=== PATIENT | female | born 1950 | race Caucasian/White ===

== ENCOUNTER 2018-06-04 19:28 | Inpatient (IN) | payer MEDICARE, MEDICAID ==
[~2018-06-04] VITALS: Ht 165.1 cm; Wt 48.0 kg
[2018-06-04 19:53] LABS: BASOPHILS # (AUTO) 0.02 x10^3/uL (0-0.1); BASOPHILS % (AUTO) 0 % (0-1); EOSINOPHILS # (AUTO) 0.02 x10^3/uL (0-0.4); EOSINOPHILS % (AUTO) 0 % (1-7); LYMPHOCYTES % (AUTO) 8 % (22-44); MD NO; MEAN CORPUSCULAR HEMOGLOBIN 32.3 pg (27.0-34.8); MEAN CORPUSCULAR HGB CONC 33.9 g/dL (32.4-35.8); MEAN CORPUSCULAR VOLUME 95.3 fL (80-100); MEAN PLATELET VOLUME 8.1 fL (7.4-10.4); MONOCYTES # (AUTO) 0.41 x10^3/uL (0.2-0.8); MONOCYTES % (AUTO) 3 % (2-9); NEUTROPHILS # (AUTO) 14.42 x10^3/uL (1.8-6.8); NEUTROPHILS % (AUTO) 90 % (42-75); PLATELET COUNT 301 x10^3/uL (130-400); RED BLOOD COUNT 4.44 x10^6/uL (3.82-5.3); RED CELL DISTRIBUTION WIDTH 12.9 % (9.6-15.2)
[2018-06-04] MEDS ORDERED: ONDANSETRON 2MG/ML, 2ML ONE (19:55)
[2018-06-04] MEDS ORDERED: SODIUM CHLORIDE FLUSH 10ML SYR IVF ONE (20:00)
[2018-06-04] MEDS ORDERED: ONDANSETRON 2MG/ML, 2ML IVPush ONE (20:00)
[2018-06-04 20:01] LABS: INTERNATIONAL NORMALIZED RATIO 1.03 (0.93-1.1); PROTHROMBIN TIME 10.9 Seconds (9.6-11.5)
[2018-06-04 20:02] LABS: ALBUMIN 3.9 g/dL (3.4-5.0); ANION GAP 12 mmol/L (5-15); CALCIUM 8.8 mg/dL (8.5-10.1); CHLORIDE 104 mmol/L (98-107); CREATININE 1.06 mg/dL (0.55-1.02)
[2018-06-04] MEDS ORDERED: MORPHINE SULFATE 4 MG/ML, 1ML ONE (21:16)
[2018-06-04] MEDS ORDERED: METOCLOPRAMIDE 5 MG/ML, 2ML ONE (21:28)
[2018-06-04] MEDS: MORPHINE SULFATE 4 MG/ML, 1ML IVPush PRN ×2 (21:38→21:53)
[2018-06-04] MEDS ORDERED: METOCLOPRAMIDE 5 MG/ML, 2ML IVPush ONE (22:00)
[2018-06-04] MEDS ORDERED: BP MED PO ×2 (22:19)
[2018-06-04 23:10] VITALS: BP 165/80
[2018-06-05] MEDS ORDERED: ONDANSETRON 2MG/ML, 2ML IVPush ONE (00:30)
[2018-06-05] MEDS: MORPHINE SULFATE 4 MG/ML, 1ML IVPush PRN ×2 (00:47→07:20)
[2018-06-05] MEDS: SODIUM CHLORIDE 0.9% 1,000 ML IV SCH ×2 (00:54→14:00)
[2018-06-05] MEDS ORDERED: POTASSIUM CHLORIDE 40 MEQ in SODIUM CHLORIDE 0.9% 500 ML IV ONE (01:00)
[2018-06-05] MEDS ORDERED: ONDANSETRON 2MG/ML, 2ML IVPush PRN (01:00)
[2018-06-05] MEDS ORDERED: ACETAMINOPHEN 325 MG TABLET PO PRN (01:00)
[2018-06-05] MEDS ORDERED: OXYcodone IR 5MG TABLET PO PRN (01:00)
[2018-06-05] MEDS ORDERED: PROMETHAZINE 25 MG/ML, 1ML IM PRN (01:00)
[2018-06-05] MEDS ORDERED: DOCUSATE 100 MG CAPSULE PO PRN (01:00)
[2018-06-05] MEDS ORDERED: BISACODYL 10 MG SUPP PR PRN (01:00)
[2018-06-05] MEDS ORDERED: LABETALOL 5MG/ML, 20ML IVPush PRN (01:00)
[2018-06-05] MEDS ORDERED: ONDANSETRON ODT 4 MG PO PRN (01:00)
[2018-06-05] MEDS ORDERED: POLYETHYLENE GLYCOL 17 GM PACKET PO PRN (01:00)
[2018-06-05] MEDS ORDERED: hydrALAzine 20 MG/ML, 1ML IVPush PRN (01:00)
[2018-06-05] MEDS ORDERED: GABAPENTIN 300 MG CAPSULE PO PRN (01:00)
[2018-06-05 02:01] LABS: FREE T4 (FREE THYROXINE) 0.91 ng/dL (0.76-1.46); THYROID STIMULATING HORMONE 6.51 mIU/L (0.358-3.740)
[2018-06-05 02:04] LABS: HEMOGLOBIN A1C 5.2 % (4.2-6.3)
[2018-06-05 02:51] VITALS: BP 166/78
[2018-06-05] MEDS: morphine SULFATE 10 MG/ML, 1ML IVPush PRN ×3 (03:50→10:11)
[2018-06-05 04:40] LABS: BASOPHILS # (AUTO) 0.02 x10^3/uL (0-0.1); BASOPHILS % (AUTO) 0 % (0-1); EOSINOPHILS # (AUTO) 0.01 x10^3/uL (0-0.4); EOSINOPHILS % (AUTO) 0 % (1-7); LYMPHOCYTES # (AUTO) 0.53 x10^3/uL (1-3.4); LYMPHOCYTES % (AUTO) 4 % (22-44); MD NO; MEAN CORPUSCULAR HGB CONC 33.9 g/dL (32.4-35.8); MEAN CORPUSCULAR VOLUME 94.4 fL (80-100); MEAN PLATELET VOLUME 8.4 fL (7.4-10.4); MONOCYTES % (AUTO) 4 % (2-9); NEUTROPHILS # (AUTO) 10.97 x10^3/uL (1.8-6.8); NEUTROPHILS % (AUTO) 91 % (42-75); PLATELET COUNT 269 x10^3/uL (130-400); RED BLOOD COUNT 4.59 x10^6/uL (3.82-5.3); RED CELL DISTRIBUTION WIDTH 12.6 % (9.6-15.2)
[2018-06-05 04:50] LABS: ALBUMIN 3.7 g/dL (3.4-5.0); ANION GAP 10 mmol/L (5-15); CALCIUM 8.5 mg/dL (8.5-10.1); CHLORIDE 105 mmol/L (98-107)
[2018-06-05 04:53] LABS: ALANINE AMINOTRANSFERASE 25 U/L (12-78); ALKALINE PHOSPHATASE 99 U/L (45-117); BILIRUBIN,TOTAL 0.8 mg/dL (0.2-1.0); CHOL/HDL RATIO 1.7; CHOLESTEROL, TOTAL 216 mg/dL (140-239); HDL CHOL % 58 % (28-40); HDL CHOLESTEROL (DIRECT) 126 mg/dL (40-60); LDL CHOLESTEROL,CALCULATED 81 mg/dL (54-169); LDL/HDL RATIO 0.6 (0.5-3.0); TOTAL PROTEIN 6.9 g/dL (6.4-8.2); TRIGLYCERIDES 45 mg/dL (50-200); VLDL CHOLESTEROL 9 mg/dL (0-25)
[2018-06-05] MEDS ORDERED: DIAZEPAM 5 MG/ML, 2ML IV ONE (07:00)
[2018-06-05 07:20] VITALS: BP 168/77
[2018-06-05 11:18] LABS: MICROSCOPIC AUTO
[2018-06-05 11:36] LABS: CULTURE INDICATED? NO
[2018-06-05] MEDS ORDERED: NEOSPORIN OINT, 15GM ONE (12:56)
[2018-06-05 13:00] VITALS: BP 159/71
[2018-06-05] MEDS ORDERED: MIDAZOLAM 1 MG/ML, 2ML ONE (13:13)
[2018-06-05] MEDS ORDERED: PROMETHAZINE 25 MG/ML, 1ML IV PRN (13:30)
[2018-06-05] MEDS ORDERED: PROMETHAZINE 12.5 MG SUPP PR PRN (13:30)
[2018-06-05] MEDS ORDERED: EPHEDRINE 50 MG/ML, 1ML IVPush PRN (13:30)
[2018-06-05] MEDS ORDERED: DIAZEPAM 5 MG/ML, 2ML IVPush PRN (13:30)
[2018-06-05] MEDS ORDERED: HALOPERIDOL 5 MG/ML IV PRN (13:30)
[2018-06-05] MEDS ORDERED: hydrALAzine 20 MG/ML, 1ML IV PRN (13:30)
[2018-06-05] MEDS ORDERED: HYDROmorphone 2 MG/ML, 1ML IVPush PRN ×3 (13:30→19:00)
[2018-06-05] MEDS ORDERED: MEPERIDINE/PF 25MG/0.5ML IVPush PRN (13:30)
[2018-06-05] MEDS ORDERED: ONDANSETRON 2MG/ML, 2ML IV PRN ×3 (13:30→19:00)
[2018-06-05] MEDS ORDERED: ONDANSETRON ODT 8 MG PO PRN (13:30)
[2018-06-05] MEDS ORDERED: LABETALOL 5MG/ML, 20ML IV PRN (13:30)
[2018-06-05] MEDS ORDERED: ALBUTEROL SULFATE 2.5 MG/3 ML NPPB PRN (13:30)
[2018-06-05] MEDS ORDERED: FENTANYL PF 100 MCG/2ML IV PRN (13:30)
[2018-06-05] MEDS ORDERED: MORPHINE SULFATE 4 MG/ML, 1ML IVPush PRN (13:30)
[2018-06-05] MEDS ORDERED: MIDAZOLAM 1 MG/ML, 2ML IV PRN (13:30)
[2018-06-05] MEDS ORDERED: OXYcodone 5 MG/5 ML ORAL.SOL UDC PO PRN (13:30)
[2018-06-05] MEDS ORDERED: SUCCINYLCHOLINE 20 MG/ML, 10ML ONE (13:37)
[2018-06-05] MEDS ORDERED: ROCURONIUM 10 MG/ML,10ML ONE (13:37)
[2018-06-05] MEDS ORDERED: PHENYLEPHRINE 10 MG/ML ONE (13:37)
[2018-06-05] MEDS ORDERED: PROPOFOL 10 MG/ML, 20ML ONE (13:37)
[2018-06-05] MEDS ORDERED: NEOSTIGMINE 1 MG/ML, 10ML ONE (13:37)
[2018-06-05] MEDS ORDERED: CEFAZOLIN 1,000 MG ONE (13:37)
[2018-06-05] MEDS ORDERED: ONDANSETRON 2MG/ML, 2ML ONE (13:52)
[2018-06-05] MEDS ORDERED: DEXAMETHASONE 4 MG/ML, 1ML ONE (13:52)
[2018-06-05] MEDS ORDERED: FENTANYL PF 250 MCG/5ML ONE (13:52)
[2018-06-05] MEDS ORDERED: MEPERIDINE/PF 50 MG/ML ONE (14:55)
[2018-06-05] MEDS ORDERED: hydrALAzine 20 MG/ML, 1ML ONE (14:55)
[2018-06-05] MEDS ORDERED: DIPHENHYDRAMINE 25 MG CAPSULE PO PRN ×2 (17:30→19:00)
[2018-06-05] MEDS ORDERED: HYDROcodone/APAP 5/325 TABLET PO PRN ×2 (17:30→19:00)
[2018-06-05] MEDS: OXYcodone/APAP 5/325MG TABLET PO PRN ×3 (17:51→23:12)
[2018-06-05] MEDS: KETOROLAC 30 MG/1 ML IV SCH (17:51)
[2018-06-05 18:18] VITALS: BP 144/66
[2018-06-05] MEDS ORDERED: OXYcodone/APAP 5/325MG TABLET PO PRN (19:00)
[2018-06-05] MEDS ORDERED: KETOROLAC 30 MG/1 ML IV SCH (19:00)
[2018-06-05] MEDS ORDERED: CEFAZOLIN PMX 1GM/50ML 50 ML IVPB SCH (19:00)
[2018-06-05] MEDS ORDERED: DOCUSATE 100 MG CAPSULE PO SCH (21:00)
[2018-06-05] MEDS ORDERED: SODIUM CHLORIDE FLUSH 10ML SYR IVF SCH (21:00)
[2018-06-05] MEDS: CEFAZOLIN PMX 1GM/50ML 50 ML IVPB SCH (22:03)
[2018-06-05] MEDS: DOCUSATE 100 MG CAPSULE PO SCH (22:03)
[2018-06-05] MEDS: SODIUM CHLORIDE FLUSH 10ML SYR IVF SCH (22:09)
[2018-06-05] MEDS: ONDANSETRON ODT 4 MG PO PRN (22:09)
[2018-06-06 00:02] VITALS: BP 149/66
[2018-06-06] MEDS: KETOROLAC 30 MG/1 ML IV SCH ×2 (02:11→10:05)
[2018-06-06] MEDS: ONDANSETRON ODT 4 MG PO PRN ×4 (02:12→17:01)
[2018-06-06 03:38] VITALS: BP 147/70
[2018-06-06] MEDS: OXYcodone/APAP 5/325MG TABLET PO PRN ×4 (03:41→17:01)
[2018-06-06] MEDS: CEFAZOLIN PMX 1GM/50ML 50 ML IVPB SCH (05:27)
[2018-06-06 05:44] LABS: ANION GAP 8 mmol/L (5-15); CALCIUM 8.5 mg/dL (8.5-10.1); CHLORIDE 102 mmol/L (98-107)
[2018-06-06 05:46] LABS: CREATININE 1.14 mg/dL (0.55-1.02)
[2018-06-06 05:47] LABS: BASOPHILS # (AUTO) 0.04 x10^3/uL (0-0.1); BASOPHILS % (AUTO) 0 % (0-1); EOSINOPHILS % (AUTO) 0 % (1-7); LYMPHOCYTES # (AUTO) 0.41 x10^3/uL (1-3.4); LYMPHOCYTES % (AUTO) 3 % (22-44); MD NO; MEAN CORPUSCULAR HEMOGLOBIN 33.1 pg (27.0-34.8); MEAN CORPUSCULAR HGB CONC 34.7 g/dL (32.4-35.8); MEAN CORPUSCULAR VOLUME 95.3 fL (80-100); MEAN PLATELET VOLUME 8.7 fL (7.4-10.4); MONOCYTES # (AUTO) 0.63 x10^3/uL (0.2-0.8); MONOCYTES % (AUTO) 5 % (2-9); NEUTROPHILS # (AUTO) 10.82 x10^3/uL (1.8-6.8); NEUTROPHILS % (AUTO) 91 % (42-75); PLATELET COUNT 225 x10^3/uL (130-400); RED BLOOD COUNT 3.96 x10^6/uL (3.82-5.3); RED CELL DISTRIBUTION WIDTH 13.3 % (9.6-15.2)
[2018-06-06] MEDS ORDERED: ENOXAPARIN 40 MG/0.4 ML SQ SCH ×2 (06:00)
[2018-06-06] MEDS: DOCUSATE 100 MG CAPSULE PO SCH (08:26)
[2018-06-06] MEDS: SODIUM CHLORIDE FLUSH 10ML SYR IVF SCH (08:27)
[2018-06-06 08:41] VITALS: BP 135/68
[2018-06-06] MEDS ORDERED: GABA300C10 PO (13:48)
[2018-06-06] MEDS ORDERED: ENOX40SY4 SQ (13:48)
[2018-06-06] MEDS ORDERED: HYDR-3240 PO (14:46)
[2018-06-06 15:06] VITALS: BP 114/61
[2018-06-06 15:55] VITALS: BP 129/63
[2018-06-06] MEDS ORDERED: ONDA4TAB7 PO (15:57)
== END 2018-06-06 17:48 | disposition home or self-care (01) | DRG 469 ==
LOC: ED 22:19 → EDIP 22:20 → 4NOR 23:02
PROVIDERS: ADMIT Internal Medicine; ATTEND Internal Medicine
PROC: 0SRR0J9 Replacement of Right Hip Joint, Femoral Surface with Synthetic Substitute, Cemented, Open Approach (ICD-10-PCS; principal; 2018-06-05 14:00)
DX: S72.011A Unspecified intracapsular fracture of right femur, initial encounter for closed fracture (principal); N17.0 Acute kidney failure with tubular necrosis; E87.6 Hypokalemia; I10 Essential (primary) hypertension; B19.20 Unspecified viral hepatitis C without hepatic coma; W01.0XXA Fall on same level from slipping, tripping and stumbling without subsequent striking against object, initial encounter; Y92.512 Supermarket, store or market as the place of occurrence of the external cause; Z85.819 Personal history of malignant neoplasm of unspecified site of lip, oral cavity, and pharynx; Z87.891 Personal history of nicotine dependence; Z90.710 Acquired absence of both cervix and uterus; Z92.21 Personal history of antineoplastic chemotherapy; Z92.3 Personal history of irradiation; Y93.89 Activity, other specified; Y92.89 Other specified places as the place of occurrence of the external cause
CPT/HCPCS: 36415; 71045; 80048; 80053; 80061; 81001; 82040; 83036; 83735; 84439; 84443; 85025; 85610; 93005; 96374; C1713; G0378; J0690; J1100; J1650; J1885; J2175; J2250; J2405; J2550; J2704; J2710; J3010; J3360; J3480; Q0162; C1762; C1776; J0330; J0360; J2270; J2370; J2765; J7030; J7040; Q0163

== ENCOUNTER → 2020-01-24 | Day surgery (SDC) | payer MEDICAID, MEDICARE ==
[~2020-01-24] VITALS: Ht 165.1 cm; Wt 44.9 kg
[~2020-01-24] MED LIST: ACETAMINOPHEN 325 MG TABLET PO PRN; ACETAMINOPHEN 650 MG/20.3 ML UDC ONE; AMLO-150 PO; BP MED PO; CEFAZOLIN PMX 2GM/50ML IVPB ONE; CHLORHEXIDINE 15 ML UDC MM STA; DEXAMETHASONE 4 MG/ML, 1ML ONE; DIAZEPAM 5 MG/ML, 2ML IVPush PRN; DIPHENHYDRAMINE 50 MG/ML, 1ML IVPush PRN; ENOX40SY4 SQ; FENTANYL PF 100 MCG/2ML IV PRN; FENTANYL PF 100 MCG/2ML ONE; FENTANYL PF 250 MCG/5ML ONE; GABA300C10 PO; GLYCOPYRROLATE 0.4 MG/2 ML, 2ML ONE; HYDR-3240 PO; HYDR-826 PO; HYDROmorphone 1 MG/ML, 1ML INJ IVPush PRN; LACTATED RINGERS 1,000 ML IV SCH; LIDOCAINE 1%-EPI 1:100K, 20ML ONE; LIDOCAINE/PF 1%-EPI 1:200K, 30 ML ONE; LISI-167 PO; MEPERIDINE/PF 25MG/0.5ML IVPush PRN; MIDAZOLAM 1 MG/ML, 2ML ONE; NEOSTIGMINE 1 MG/ML, 10ML ONE; OMEP-110 PO; ONDA4TAB7 PO; ONDANSETRON 2MG/ML, 2ML IVPush PRN; ONDANSETRON 2MG/ML, 2ML ONE; OXYcodone 5 MG/5 ML ORAL.SOL UDC ONE; PROMETHAZINE 25 MG/ML, 1ML IVPush PRN; PROMETHAZINE 25 MG/ML, 1ML ONE; PROPOFOL 10 MG/ML, 100ML IV ONE; ROCURONIUM 10 MG/ML,10ML ONE; SERT25TA PO; hydrALAzine 20 MG/ML, 1ML ONE
[2020-01-24 11:58] VITALS: BP 169/78
[2020-01-24 12:46] LABS: ALANINE AMINOTRANSFERASE 18 U/L (12-78); ALBUMIN 3.8 g/dL (3.4-5.0); ANION GAP 8 mmol/L (5-15); CALCIUM 9.6 mg/dL (8.5-10.1); CHLORIDE 109 mmol/L (98-107)
[2020-01-24 12:49] LABS: ALKALINE PHOSPHATASE 107 U/L (45-117); BILIRUBIN,TOTAL 0.5 mg/dL (0.2-1.0); TOTAL PROTEIN 7.3 g/dL (6.4-8.2)
[2020-01-24] MEDS: OXYcodone 5 MG/5 ML ORAL.SOL UDC PO PRN ×2 (15:25→16:30)
[2020-01-24 17:51] LABS: BASOPHILS % (AUTO) 0 % (0-1); EOSINOPHILS # (AUTO) 0.05 x10^3/uL (0-0.4); EOSINOPHILS % (AUTO) 1 % (1-7); LYMPHOCYTES # (AUTO) 0.48 x10^3/uL (1-3.4); LYMPHOCYTES % (AUTO) 5 % (22-44); MD NO; MEAN CORPUSCULAR HEMOGLOBIN 30.8 pg (27.0-34.8); MEAN CORPUSCULAR HGB CONC 33.2 g/dL (32.4-35.8); MEAN CORPUSCULAR VOLUME 92.9 fL (80-100); MEAN PLATELET VOLUME 7.9 fL (7.4-10.4); MONOCYTES # (AUTO) 0.05 x10^3/uL (0.2-0.8); MONOCYTES % (AUTO) 1 % (2-9); NEUTROPHILS % (AUTO) 94 % (42-75); PLATELET COUNT 311 x10^3/uL (130-400); RED BLOOD COUNT 4.23 x10^6/uL (3.82-5.3); RED CELL DISTRIBUTION WIDTH 12.5 % (9.6-15.2)
[2020-01-24 18:00] LABS: INTERNATIONAL NORMALIZED RATIO 1.02 (0.93-1.1); PROTHROMBIN TIME 10.8 Seconds (9.6-11.5)
[2020-01-24 18:01] LABS: ALANINE AMINOTRANSFERASE 17 U/L (12-78); ALBUMIN 3.6 g/dL (3.4-5.0); ANION GAP 9 mmol/L (5-15); CALCIUM 9.5 mg/dL (8.5-10.1); CHLORIDE 110 mmol/L (98-107); CREATININE 1.31 mg/dL (0.55-1.02)
[2020-01-24 18:04] LABS: ALKALINE PHOSPHATASE 94 U/L (45-117); BILIRUBIN,TOTAL 0.3 mg/dL (0.2-1.0); TOTAL PROTEIN 6.6 g/dL (6.4-8.2)
== END | disposition home or self-care (01) ==
LOC: OUT 11:22
PROVIDERS: ATTEND Otolaryngology
DX: C02.1 Malignant neoplasm of border of tongue (principal); I10 Essential (primary) hypertension; F41.9 Anxiety disorder, unspecified; K21.9 Gastro-esophageal reflux disease without esophagitis; F32.9 Major depressive disorder, single episode, unspecified; Z90.710 Acquired absence of both cervix and uterus; Z90.49 Acquired absence of other specified parts of digestive tract; Z98.890 Other specified postprocedural states; Z79.899 Other long term (current) drug therapy; Z82.3 Family history of stroke; Z87.891 Personal history of nicotine dependence; Z72.89 Other problems related to lifestyle
CPT/HCPCS: 36415; 41120; 70450; 80053; 82962; 85025; 85610; 87635; 88305; 88331; 93005; J0360; J0690; J1100; J2250; J2405; J2550; J2704; J2710; J3010; J3490; J7120